=== PATIENT | male | born 1950 | race Caucasian/White ===

== ENCOUNTER 2016-11-14 13:23 | Emergency (ER) | payer MEDICARE, OTHER ==
[~2016-11-14] VITALS: Ht 193 cm; Wt 134.3 kg
[~2016-11-14 13:23] MED LIST: ADULT LOW DOSE81 MG PO; AMLODIPINE BESY10 MG PO
[2016-11-14] MEDS ORDERED: LASIX40 MG PO (13:45)
[2016-11-14] MEDS ORDERED: SPIRONOLACTONE25 MG PO (13:45)
[2016-11-14] MEDS ORDERED: COREG12.5 MG PO (13:47)
[2016-11-14] MEDS ORDERED: VITAMIN B122500 MCG PO (13:47)
[2016-11-14] MEDS ORDERED: LANTUS100 UNITS/ SUB-Q (13:48)
== END 2016-11-14 14:48 | disposition home or self-care (01) ==
LOC: ED 13:23
DX: R60.0 Localized edema (principal); I11.0 Hypertensive heart disease with heart failure; I50.9 Heart failure, unspecified; E11.9 Type 2 diabetes mellitus without complications; I48.91 Unspecified atrial fibrillation; F17.200 Nicotine dependence, unspecified, uncomplicated; Z90.49 Acquired absence of other specified parts of digestive tract; Z79.82 Long term (current) use of aspirin; Z79.4 Long term (current) use of insulin; Z79.899 Other long term (current) drug therapy
CPT/HCPCS: 99282